=== PATIENT | female | born 1960 | race Caucasian/White ===

== ENCOUNTER 2021-11-08 14:31 | Emergency (ER) | payer OTHER, SELFPAY ==
--- NOTE | 2021-11-08 14:37 | ED.URI ---
HPI - URI/Sore Throat General Chief Complaint: Upper Respiratory Infection Stated Complaint: Cough/Sneezing Time Seen by Provider: 11/08/21 14:37 Source: patient and RN notes reviewed History of Present Illness HPI Narrative: Patient is 61-year-old female who presents to urgent care with complaints of cough, sneezing, nasal drainage and scratchy throat. Patient states that it started last . States that she had a decrease in the scratchy throat over the weekend when she was not having to wear her mask. Patient has been taking TheraFlu [id number] for her symptoms. Denies of any known fevers, nausea or vomiting. Denies of any known exposures to COVID. Patient has not been COVID vaccinated. No other acute complaints. No acute distress noted. Patient aware of the plan of care. Some parts of this dictation were generated by voice recognition software and may contain typographical and/or grammatical inaccuracies. Related Data Home Medications Medication Instructions Recorded Confirmed No Home Medications 11/08/21 11/08/21 Allergies Allergy/AdvReac Type Severity Reaction Status Date / Time No Known Allergies Allergy Verified 11/08/21 14:51 Review of Systems Review of Systems: CONSTITUTIONAL: Denies fever, chills, or sweats. EYES: Denies visual changes, redness, or discharge. ENT: Reports rhinorrhea, postnasal drainage, sore throat and sneezing. CARDIOVASCULAR: Denies chest pain, palpitations, or edema. RESPIRATORY: Reports a cough without dyspnea GASTROINTESTINAL: Denies abdominal pain, nausea, vomiting, or diarrhea. GENITOURINARY: Denies dysuria or hematuria. SKIN: Denies rash or itching. MUSCULOSKELETAL: Denies back pain, joint pain, or myalgia. NEUROLOGIC: Denies headache, numbness, or weakness. All other systems reviewed are negative, except as documented in HPI. PMFSH Comments At the time of my signature, I reviewed and agree with the nursing past medical, surgical, social, and family history. There is no relevant family history pertinent to the patient complaint. Exam Narrative: GENERAL: This is a well-nourished, well-developed patient, in no apparent distress. HEAD: normocephalic, atraumatic. EYES: PERRL. Sclera clear/white. Vision is grossly intact. EARS: External ears normal, auditory canals clear and without drainage, TMs normal without perforation. Hearing grossly intact. NOSE: External nose normal with no obvious nasal discharge, nares without redness, no rhinorrhea. THROAT: Mucous membranes moist, posterior pharynx clear. Moderate postnasal drainage NECK: Neck supple CARDIOVASCULAR: Regular rate and rhythm without murmurs, gallops, or rubs. RESPIRATORY: Clear to auscultation. Diminished bibasilar SKIN: warm, intact with no suspicious lesions or rash, good texture and turgor. NEURO: awake, alert, and oriented to person, place and time. There were no obvious focal neurologic abnormalities. EXTREMITIES: No clubbing, cyanosis, or edema. Course Course Level of Care: Express Care Visit Vital Signs Vital signs: Vital Signs Temperature 98.4 F 11/08/21 14:50 Pulse Rate 76 11/08/21 14:50 Respiratory Rate 16 11/08/21 14:50 Blood Pressure 138/79 11/08/21 14:50 Pulse Oximetry 100 11/08/21 14:50 Temperature 98.4 F 11/08/21 14:50 Pulse Rate 76 11/08/21 14:50 Respiratory Rate 16 11/08/21 14:50 Blood Pressure 138/79 11/08/21 14:50 Pulse Oximetry 100 11/08/21 14:50 Reviewed MDM - URI/Sore Throat MDM Narrative Medical decision making narrative: Reviewed lab results with the patient. She is aware that rapid COVID was negative. Based on assessment and history of chronic bronchitis?we will treat with antibiotics and steroids. Advised the patient to complete the oral antibiotic regimen as prescribed. Be sure to eat and drink medication. Complete the steroid regimen as prescribed. Use the inhaler as needed for shortness of breath or coughing fits. Continue Tyleno
[2021-11-08 14:50] VITALS: BP 138/79; PULSE 76; RESP 16; TEMP 36.9; O2SAT 100
== END 2021-11-08 15:44 | disposition home or self-care (01) ==
PROVIDERS: Emergency Provider Nurse Practitioner Family; PCP Internal Medicine
DX: J40 Bronchitis, not specified as acute or chronic (principal); Z20.822 Contact with and (suspected) exposure to COVID-19
CPT/HCPCS: 87426; 99213; C9803; G0463